=== PATIENT | female | born 1995 | race American Indian/Alaskan Native ===

== ENCOUNTER 2020-08-29 11:42 | Emergency (ER) | payer BC ==
[2020-08-29 14:43] VITALS: BP 136/85
== END 2020-08-29 14:42 | disposition home or self-care (01) ==
LOC: ED 11:42
DX: J45.909 Unspecified asthma, uncomplicated (principal); J02.9 Acute pharyngitis, unspecified; I10 Essential (primary) hypertension; F12.10 Cannabis abuse, uncomplicated; Z98.890 Other specified postprocedural states; Z79.1 Long term (current) use of non-steroidal anti-inflammatories (NSAID); Z79.899 Other long term (current) drug therapy
CPT/HCPCS: 71046; 87116; 87430; 94640; 99284; J7512; 94644

== ENCOUNTER 2020-12-03 09:22 | Emergency (ER) | payer SELFPAY | END 2020-12-03 09:43 | disposition left against medical advice (07) | LOC: ED 09:22 | DX: J45.909 Unspecified asthma, uncomplicated (principal); Z53.21 Procedure and treatment not carried out due to patient leaving prior to being seen by health care provider ==